=== PATIENT | female | born 1950 | race Caucasian/White ===

== ENCOUNTER → 2016-05-28 | Outpatient (CLI) | payer OTHER, MEDICARE ==
[~2016-05-28] VITALS: Ht 160 cm; Wt 63.5 kg
[~2016-05-28] MED LIST: ASPI1TAB24 PO; AUGM875T27 PO; BABY81CH PO; CALC500T49 PO; CALCTAB23 PO; LIDOCAINE 2% INJ 100 MG/5 ML SDV (FOR ANES.) As Ordered ONE; LORTTAB8 PO; LR 1,000 ML IV SCH; MULT1TAB10 PO; MULTTAB4 PO; PRAVASTATIN PO; PROPOFOL 200 MG/20 ML VIAL As Ordered ONE; VITA100037 PO; VITAD1000T PO; cholesterol med
[2016-05-28 10:15] VITALS: BP 138/78
--- NOTE | 2016-05-28 10:43 | ROOR ---
Patient Name: Whitney Denton Procedure Date: 05/28/2016 9:19 AM Date of : 1950 Age: 65 Room: [facility] Gender: Female Note Status: Finalized Procedure: Colonoscopy Indications: Screening in patient at increased risk: Colorectal cancer in mother before age 60, Last colonoscopy: 2010 Providers: Dennis Mauricio MD Referring MD: Kia WARNER MD Requesting Provider: Medicines: Monitored Anesthesia Care Complications: No immediate complications. Procedure: Pre-Anesthesia Assessment: - Prior to the procedure, a History and Physical was performed, and patient medications and allergies were reviewed. The patient is competent. The risks and benefits of the procedure and the sedation options and risks were discussed with the patient. All questions were answered and informed consent was obtained. Patient identification and proposed procedure were verified by the physician, the nurse and the anesthesiologist in the procedure room. Mental Status Examination: alert and oriented. Airway Examination: normal oropharyngeal airway and neck mobility. CV Examination: regular rate and rhythm. Prophylactic Antibiotics: The patient does not require prophylactic antibiotics. Prior Anticoagulants: The patient has taken no previous anticoagulant or antiplatelet agents. ASA Grade Assessment: II - A patient with mild systemic disease. After reviewing the risks and benefits, the patient was deemed in satisfactory condition to undergo the procedure. The anesthesia plan was to use monitored anesthesia care (MAC). Immediately prior to administration of medications, the patient was re-assessed for adequacy to receive sedatives. The heart rate, respiratory rate, oxygen saturations, blood pressure, adequacy of pulmonary ventilation, and response to care were monitored throughout the procedure. The physical status of the patient was re-assessed after the procedure. The Colonoscope was introduced through the anus and advanced to the cecum, identified by appendiceal orifice and ileocecal valve. The colonoscopy was performed without difficulty. The patient tolerated the procedure well. The quality of the bowel preparation was excellent. Findings: The perianal and digital rectal examinations were normal. The colon (entire examined portion) appeared normal. Impression: - The entire examined colon is normal. - No specimens collected. Recommendation: - Discharge patient to home. - Resume previous diet. - Continue present medications. - Repeat colonoscopy in 5 years for screening purposes. Dennis Mauricio MD 05/28/2016 10:43:14 AM Number of Addenda: 0 Note Initiated On: 05/28/2016 9:19 AM Estimated Blood Loss: Estimated blood loss: none.
== END ==
LOC: M OPP 08:24
PROVIDERS: ATTEND Surgery
DX: Z12.11 Encounter for screening for malignant neoplasm of colon (principal); Z80.0 Family history of malignant neoplasm of digestive organs; E78.00 Pure hypercholesterolemia, unspecified; Z79.899 Other long term (current) drug therapy; Z79.82 Long term (current) use of aspirin; Z88.1 Allergy status to other antibiotic agents; Z88.8 Allergy status to other drugs, medicaments and biological substances

== ENCOUNTER 2016-08-17 15:10 | Emergency (ER) | payer MEDICARE, OTHER ==
[~2016-08-17] VITALS: Ht 160 cm; Wt 66.0 kg
[~2016-08-17 15:10] MED LIST changes: +ASPI-161 PO; -ASPI1TAB24 PO; -LIDOCAINE 2% INJ 100 MG/5 ML SDV (FOR ANES.) As Ordered ONE; -LR 1,000 ML IV SCH; -PROPOFOL 200 MG/20 ML VIAL As Ordered ONE; -VITA100037 PO; +VITA100067 PO
[2016-08-17] MEDS ORDERED: KEFL500C17 PO (15:19)
[2016-08-17] MEDS ORDERED: KETOROLAC 30 MG/ML VIAL (J1885) IV ONE (16:15)
[2016-08-17 16:23] LABS: BASO % 0.3 % (0.0-1.0); EOS # 0.3 K/mm3 (0.0-0.50); EOS % 1.9 % (0.0-3.0); LARGE UNSTAINED CELL # 0.1 K/mm3 (0.0-0.4); LARGE UNSTAINED CELL % 0.5 % (0.0-4.0); LYMPH # 1.6 K/mm3 (1.5-4.5); LYMPH % 10.3 % (24.0-44.0); MEAN CORPUSCULAR HGB CONC 32.9 g/dl (32.0-36.5); MEAN CORPUSCULAR VOLUME 91.2 fl (80.0-96.0); MONO # 0.4 K/mm3 (0.0-0.8); MONO % 2.8 % (0.0-5.0); NEUTROPHILS # 12.8 K/mm3 (1.8-7.7); NEUTROPHILS % 84.1 % (36.0-66.0); PLATELET COUNT, AUTOMATED 284 k/mm3 (150-450); RED CELL DISTRIBUTION WIDTH 13.1 % (11.5-14.5); WHITE BLOOD COUNT 15.2 K/mm3 (4.0-10.0)
[2016-08-17 16:47] LABS: ALBUMIN 4.2 GM/DL (3.2-5.2); ALBUMIN/GLOBULIN RATIO 1.14 (1.00-1.93); ALKALINE PHOSPHATASE 106 U/L (45-117); ALT/SGPT 50 U/L (12-78); ANION GAP 3 MEQ/L (8-16); AST/SGOT 39 U/L (15-37); BILIRUBIN,TOTAL 0.7 MG/DL (0.2-1.0); BLOOD UREA NITROGEN 14 MG/DL (7-18); CALCIUM LEVEL 9.1 MG/DL (8.8-10.2); CARBON DIOXIDE LEVEL 30 MEQ/L (21-32); CHLORIDE LEVEL 103 MEQ/L (98-107); CREATININE FOR GFR 0.93 MG/DL (0.55-1.02); GLOMERULAR FILTRATION RATE > 60.0 (>45); GLUCOSE, FASTING 97 MG/DL (80-110); POTASSIUM SERUM 3.9 MEQ/L (3.5-5.1); SODIUM LEVEL 136 MEQ/L (136-145); TOTAL PROTEIN 7.9 GM/DL (6.4-8.2)
[2016-08-17 16:57] LABS: ERYTHROCYTE SEDIMENTATION RATE 23 mm/hr (0-30)
[2016-08-17] MEDS ORDERED: NS 1,000 ML IV ONE (17:00)
[2016-08-17] MEDS ORDERED: ISOVUE-370 76% 100ML VIAL (Q9967) As Ordered ONE (17:11)
[2016-08-17 17:57] VITALS: BP 128/76
--- NOTE | 2016-08-17 18:47 | REP ---
Clinical: Submandibular swelling. Technique: Axial contrast enhanced images from the the mid skull through the thoracic inlet using 100 ml Isovue 370 intravenous contrast material with coronal and sagittal re-formations. Findings: The osseous structures are intact and normal. The sinuses and mastoid air cells are clear. The nasopharynx and oropharynx are patent, midline and without mass or mass effect. The parapharyngeal and retropharyngeal soft tissues, fat planes and associated bilateral neurovascular bundles are symmetric and unremarkable. Bilateral parotid submandibular and submental glands are symmetric and relatively normal few scattered submandibular and cervical chain lymph nodes measure up to approximately 9 mm and are otherwise nonspecific. No abnormal fluid collection or abscess appreciated. Subtle low density nodule in the left thyroid lobe is suggested. Impression: Few submandibular and cervical chain lymph nodes measuring up to 9 mm may reflect an underlying mild infectious/inflammatory process. The remainder of the examination is relatively normal as described above. Signed by Hitesh Veliz MD 08/17/2016 06:39 P
== END 2016-08-17 18:34 | disposition home or self-care (01) ==
LOC: M ED 15:10
DX: R59.0 Localized enlarged lymph nodes (principal)
CPT/HCPCS: 36415; 70491; 80053; 85025; 85652; 86140; 96361; 96374; 99283; J1885; Q9967

== ENCOUNTER → 2016-08-21 | Outpatient (REF) | payer MEDICARE, OTHER ==
[~2016-08-21] MED LIST changes: +KEFL500C17 PO
== END ==
LOC: M SFHCCLAY 10:09
PROVIDERS: ATTEND Family Medicine
DX: R59.0 Localized enlarged lymph nodes (principal); D72.829 Elevated white blood cell count, unspecified; Z53.8 Procedure and treatment not carried out for other reasons

== ENCOUNTER → 2016-09-03 | Outpatient (REF) | payer MEDICARE, OTHER ==
[2016-09-03 11:25] LABS: BASO # 0.1 K/mm3 (0.0-0.2); EOS # 0.2 K/mm3 (0.0-0.50); EOS % 3.7 % (0.0-3.0); LARGE UNSTAINED CELL # 0.1 K/mm3 (0.0-0.4); LARGE UNSTAINED CELL % 1.4 % (0.0-4.0); LYMPH # 1.6 K/mm3 (1.5-4.5); LYMPH % 25.7 % (24.0-44.0); MEAN CORPUSCULAR HEMOGLOBIN 31.5 pg (27.0-33.0); MEAN CORPUSCULAR HGB CONC 34.4 g/dl (32.0-36.5); MEAN CORPUSCULAR VOLUME 91.6 fl (80.0-96.0); MONO # 0.3 K/mm3 (0.0-0.8); MONO % 4.7 % (0.0-5.0); NEUTROPHILS # 3.8 K/mm3 (1.8-7.7); NEUTROPHILS % 63.4 % (36.0-66.0); PLATELET COUNT, AUTOMATED 239 k/mm3 (150-450); RED CELL DISTRIBUTION WIDTH 13.2 % (11.5-14.5)
== END ==
LOC: M SFHCCLAY 08:38
PROVIDERS: ATTEND Family Medicine
DX: R59.0 Localized enlarged lymph nodes (principal); D72.829 Elevated white blood cell count, unspecified

== ENCOUNTER → 2020-03-17 | Outpatient (CLI) | payer SELFPAY | LOC: M LABSMTC 11:46 | PROVIDERS: ATTEND Pediatrics | DX: Z20.822 Contact with and (suspected) exposure to COVID-19 (principal) ==

== ENCOUNTER → 2021-03-24 | Outpatient (CLI) | payer MEDICARE, OTHER ==
[~2021-03-24] MED LIST changes: +ROSU5TAB5 PO; +VITMTA PO
== END ==
LOC: M LABSMTC 12:57
PROVIDERS: ATTEND Anesthesiology
DX: Z01.812 Encounter for preprocedural laboratory examination (principal); Z20.822 Contact with and (suspected) exposure to COVID-19

== ENCOUNTER 2021-03-27 10:15 | Day surgery (SDC) | payer MEDICARE, OTHER ==
[~2021-03-27] VITALS: Ht 157.5 cm; Wt 64.4 kg
[~2021-03-27 10:15] MED LIST changes: +NS 1,000 ML IV ONE
[2021-03-27] MEDS ORDERED: LIDOCAINE 2% 100MG/5ML SDV (FOR ANES.) As Ordered ONE (12:41)
[2021-03-27] MEDS ORDERED: propofoL 500 MG/50 ML VIAL As Ordered ONE (12:42)
[2021-03-27 14:14] VITALS: BP 121/72
== END 2021-03-27 14:20 | disposition home or self-care (01) ==
LOC: M OPP 10:15
PROVIDERS: ATTEND Surgery
DX: Z12.11 Encounter for screening for malignant neoplasm of colon (principal); Z80.0 Family history of malignant neoplasm of digestive organs; Q43.8 Other specified congenital malformations of intestine; Z79.899 Other long term (current) drug therapy; Z88.1 Allergy status to other antibiotic agents

== ENCOUNTER 2021-06-13 13:03 | Inpatient (IN) | payer MEDICARE, OTHER ==
[~2021-06-13] VITALS: Ht 157.5 cm; Wt 62.8 kg
[~2021-06-13 13:03] MED LIST changes: -NS 1,000 ML IV ONE
[2021-06-13] MEDS ORDERED: NS 1,000 ML IV ONE (14:30)
[2021-06-13] MEDS ORDERED: ONDANSETRON 4MG/2ML VIAL IV ONE (14:30)
[2021-06-13] MEDS ORDERED: MECLIZINE 25 MG TABLET PO ONE (14:35)
[2021-06-13 15:22] LABS: BASO % 0.3 % (0.0-1.0); EOS % 0.1 % (0.0-3.0); HEMATOCRIT 40.1 % (36.0-47.0); HEMOGLOBIN 13.6 g/dl (12.0-15.5); LYMPH # 1.1 10^3/uL (1.5-5.0); LYMPH % 9.4 % (24.0-44.0); MEAN CORPUSCULAR HEMOGLOBIN 31.1 pg (27.0-33.0); MEAN CORPUSCULAR HGB CONC 33.9 g/dl (32.0-36.5); MEAN CORPUSCULAR VOLUME 91.8 fl (80.0-96.0); MONO # 0.5 10^3/uL (0.0-0.8); MONO % 4.5 % (2.0-8.0); NEUTROPHILS # 9.6 10^3/uL (1.5-8.5); NEUTROPHILS % 85.3 % (36.0-66.0); PLATELET COUNT, AUTOMATED 235 10^3/uL (150-450); RED BLOOD COUNT 4.37 10^6/uL (4.00-5.40); WHITE BLOOD COUNT 11.2 10^3/uL (4.0-10.0)
[2021-06-13 15:40] LABS: INR 0.98; PARTIAL THROMBOPLASTIN TIME 28.5 SECONDS (25.9-37.0); PROTHROMBIN TIME 13.4 SECONDS (12.7-14.5)
[2021-06-13 15:44] LABS: CK-MB VALUE MASS < 1.0 NG/ML (<3.6); CPK CREATINE PHOSPHOKINASE 86 U/L (26-192); MB/CK RELATIVE INDEX 1.16 (< OR =4)
[2021-06-13 15:52] LABS: BLOOD UREA NITROGEN 14 MG/DL (7-18); GLUCOSE, FASTING 143 MG/DL (70-100)
[2021-06-13 15:53] LABS: CALCIUM LEVEL 9.7 MG/DL (8.8-10.2); CARBON DIOXIDE LEVEL 26 MEQ/L (21-32); CHLORIDE LEVEL 109 MEQ/L (98-107); GLOMERULAR FILTRATION RATE > 60.0 (>39); SODIUM LEVEL 142 MEQ/L (136-145)
[2021-06-13] MEDS ORDERED: diazePAM 2 MG TAB PO ONE (16:45)
[2021-06-13] MEDS ORDERED: PROMETHAZINE 25MG/ML 1ML VIAL IV ONE (18:05)
[2021-06-13] MEDS ORDERED: METOCLOPRAMIDE 10MG TAB PO ONE (18:10)
[2021-06-13] MEDS ORDERED: TOPIRAMATE (TopAMAX) 25 MG TAB PO ONE (20:45)
[2021-06-13 20:58] LABS: RSV AMPLIFICATION NEGATIVE (NEGATIVE)
[2021-06-13] MEDS ORDERED: CALC1TAB30 PO (22:24)
[2021-06-13] MEDS ORDERED: FISH1000 PO (22:24)
[2021-06-13] MEDS ORDERED: HOME MED LIST COMPLETE! XX SCH (22:25)
[2021-06-13 23:30] VITALS: BP 136/72
[2021-06-13] MEDS: predniSONE 20 MG TAB PO SCH (23:44)
[2021-06-14] MEDS ORDERED: PILL CUTTER 1 EACH XX PRN (01:35)
[2021-06-14 02:00] VITALS: BP 115/61
[2021-06-14 06:00] VITALS: BP 114/61
[2021-06-14 06:31] LABS: ALBUMIN 3.5 GM/DL (3.2-5.2); ALT/SGPT 39 U/L (12-78); BILIRUBIN,TOTAL 0.5 MG/DL (0.2-1.0); BLOOD UREA NITROGEN 10 MG/DL (7-18); CALCIUM LEVEL 9.3 MG/DL (8.8-10.2); CARBON DIOXIDE LEVEL 26 MEQ/L (21-32); CHLORIDE LEVEL 110 MEQ/L (98-107); CREATININE FOR GFR 0.76 MG/DL (0.55-1.30); GLOMERULAR FILTRATION RATE > 60.0 (>39); GLUCOSE, FASTING 117 MG/DL (70-100); POTASSIUM SERUM 3.9 MEQ/L (3.5-5.1); SODIUM LEVEL 143 MEQ/L (136-145); TOTAL PROTEIN 6.6 GM/DL (6.4-8.2)
[2021-06-14] MEDS: TOPIRAMATE (TopAMAX) 25 MG TAB PO SCH ×2 (09:02→20:03)
[2021-06-14] MEDS: MULTIVITAMINS/MINERALS THERAP 1 TAB PO SCH (09:04)
[2021-06-14] MEDS: CALCIUM/VITAMIN D 500 MG TAB PO SCH (09:04)
[2021-06-14] MEDS: predniSONE 20 MG TAB PO SCH (09:04)
[2021-06-14] MEDS: PROMETHAZINE 25MG/ML 1ML VIAL IV PRN (09:04)
[2021-06-14 09:14] LABS: BASO % 0.1 % (0.0-1.0); HEMATOCRIT 40.1 % (36.0-47.0); HEMOGLOBIN 13.5 g/dl (12.0-15.5); LYMPH % 11.3 % (24.0-44.0); MEAN CORPUSCULAR HEMOGLOBIN 30.6 pg (27.0-33.0); MEAN CORPUSCULAR HGB CONC 33.7 g/dl (32.0-36.5); MEAN CORPUSCULAR VOLUME 90.9 fl (80.0-96.0); MONO # 0.1 10^3/uL (0.0-0.8); MONO % 0.6 % (2.0-8.0); NEUTROPHILS # 7.9 10^3/uL (1.5-8.5); NEUTROPHILS % 87.4 % (36.0-66.0); PLATELET COUNT, AUTOMATED 254 10^3/uL (150-450); RED BLOOD COUNT 4.41 10^6/uL (4.00-5.40)
[2021-06-14] MEDS: MECLIZINE 12.5 MG TAB PO PRN (10:25)
[2021-06-14 14:00] VITALS: BP 121/61
[2021-06-14] MEDS: HEPARIN SOD (PORCINE) 5000UNITS/ML 1ML VIAL/SYRINGE SQ SCH ×2 (14:00→20:06)
[2021-06-14 20:01] VITALS: BP 119/59
[2021-06-14] MEDS ORDERED: ROSUVASTATIN 10 MG TAB (CRESTOR) PO SCH (21:00)
[2021-06-15] VITALS: BP 117/58
[2021-06-15] MEDS: MECLIZINE 12.5 MG TAB PO PRN (04:02)
[2021-06-15] MEDS: PROMETHAZINE 25MG/ML 1ML VIAL IV PRN (04:02)
[2021-06-15 04:07] VITALS: BP 122/60
[2021-06-15] MEDS: HEPARIN SOD (PORCINE) 5000UNITS/ML 1ML VIAL/SYRINGE SQ SCH ×2 (04:11→14:00)
[2021-06-15 06:51] LABS: BASO % 0.2 % (0.0-1.0); EOS % 0.1 % (0.0-3.0); HEMOGLOBIN 12.4 g/dl (12.0-15.5); LYMPH # 2.7 10^3/uL (1.5-5.0); LYMPH % 18.3 % (24.0-44.0); MEAN CORPUSCULAR HEMOGLOBIN 30.9 pg (27.0-33.0); MEAN CORPUSCULAR HGB CONC 32.6 g/dl (32.0-36.5); MEAN CORPUSCULAR VOLUME 94.8 fl (80.0-96.0); MONO # 0.8 10^3/uL (0.0-0.8); MONO % 5.2 % (2.0-8.0); NEUTROPHILS % 75.9 % (36.0-66.0); PLATELET COUNT, AUTOMATED 246 10^3/uL (150-450); RED BLOOD COUNT 4.01 10^6/uL (4.00-5.40); WHITE BLOOD COUNT 14.5 10^3/uL (4.0-10.0)
[2021-06-15 07:19] LABS: BLOOD UREA NITROGEN 16 MG/DL (7-18); CALCIUM LEVEL 9.5 MG/DL (8.8-10.2); CARBON DIOXIDE LEVEL 28 MEQ/L (21-32); CHLORIDE LEVEL 112 MEQ/L (98-107); CREATININE FOR GFR 0.89 MG/DL (0.55-1.30); GLOMERULAR FILTRATION RATE > 60.0 (>39); GLUCOSE, FASTING 100 MG/DL (70-100); MAGNESIUM LEVEL 2.4 MG/DL (1.8-2.4); POTASSIUM SERUM 3.7 MEQ/L (3.5-5.1); SODIUM LEVEL 145 MEQ/L (136-145)
[2021-06-15] MEDS: predniSONE 20 MG TAB PO SCH (09:18)
[2021-06-15] MEDS: MULTIVITAMINS/MINERALS THERAP 1 TAB PO SCH (09:18)
[2021-06-15] MEDS: CALCIUM/VITAMIN D 500 MG TAB PO SCH (09:18)
[2021-06-15] MEDS: TOPIRAMATE (TopAMAX) 25 MG TAB PO SCH (09:18)
[2021-06-15 10:00] VITALS: BP 112/61
[2021-06-15] MEDS ORDERED: TOPA1TAB PO (12:27)
[2021-06-15] MEDS ORDERED: PRED20TA PO (12:27)
== END 2021-06-15 15:30 | disposition home or self-care (01) | DRG 149 ==
LOC: M ED 13:03 → EDBD 13:03 → M ED INP 22:38 → ENRESERV 22:58 → M MS5PR 23:25
PROVIDERS: ADMIT Family Medicine; ATTEND Family Medicine
DX: H81.20 Vestibular neuronitis, unspecified ear (principal); E78.00 Pure hypercholesterolemia, unspecified; Z87.891 Personal history of nicotine dependence; Z90.49 Acquired absence of other specified parts of digestive tract; Z20.822 Contact with and (suspected) exposure to COVID-19; Z79.899 Other long term (current) drug therapy; Z88.1 Allergy status to other antibiotic agents

== ENCOUNTER → 2021-11-27 | Outpatient (CLI) | payer MEDICARE, OTHER ==
[~2021-11-27] MED LIST changes: +CALC1TAB30 PO; +FISH1000 PO; +PRED20TA PO; +TOPA1TAB PO
== END ==
LOC: M RAD 11:45
PROVIDERS: ATTEND Internal Medicine
DX: R10.31 Right lower quadrant pain (principal); R10.32 Left lower quadrant pain; M85.35 Osteitis condensans, thigh

== ENCOUNTER → 2022-06-10 | Outpatient (REF) | payer MEDICARE, OTHER | LOC: M LAB REF 16:13 | PROVIDERS: ATTEND Internal Medicine | DX: R42 Dizziness and giddiness (principal) ==

== ENCOUNTER → 2023-07-02 | Outpatient (CLI) | payer MEDICARE, OTHER ==
[~2023-07-02] MED LIST changes: -ASPI-161 PO; +ASPI-615 PO; +ROSU5TAB40 PO; -ROSU5TAB5 PO
== END ==
LOC: M CLY 12:41
PROVIDERS: ATTEND Family Medicine
DX: M16.11 Unilateral primary osteoarthritis, right hip (principal)